=== PATIENT | female | born 1965 | race Caucasian/White ===

== ENCOUNTER 2025-03-13 14:36 | Day surgery (SDC) | payer MEDICARE ==
[2025-03-13] MEDS ORDERED: BUPIVACAINE 0.5% VIAL IJ ONE (14:37)
[2025-03-13] MEDS ORDERED: methylPREDNISolone acetate IM ONE (14:37)
[2025-03-13] MEDS ORDERED: LIDOCAINE HCL 1% 50 MG/5 ML VL IJ ONE (14:37)
--- NOTE | 2025-03-13 19:35 | XRAY ---
Indication: Right shoulder and subacromial bursa injection. Intraoperative fluoroscopy provided for 21 seconds. 2 digital spot image submitted for interpretation demonstrates needle tip projecting over right glenohumeral joint superiorly. Second needle tip subacromial. Small amount of contrast injected for needle tip placement. Correlate with intraoperative findings/report.
--- NOTE | 2025-03-13 19:38 | XRAY ---
21 seconds of fluoroscopy was used in surgery for a right intra-articular shoulder and subacromial bursa injection.
== END 2025-03-13 16:25 | disposition home or self-care (01) ==
LOC: SDC-PAIN 14:36
PROVIDERS: ATTEND Psychiatry & Neurology Pain Medicine
DX: M19.011 Primary osteoarthritis, right shoulder (principal); E11.9 Type 2 diabetes mellitus without complications; M75.51 Bursitis of right shoulder